=== PATIENT | female | born 1945 | race Caucasian/White ===

== ENCOUNTER 2022-10-21 14:45 | Inpatient (IN) | payer BC, OTHER ==
[~2022-10-21] VITALS: Ht 160 cm; Wt 108.4 kg
[2022-10-21] MEDS ORDERED: IV NORMAL SALINE 1000 ML BAG IV ONE (15:00)
[2022-10-21 15:12] LABS: HEMATOCRIT 28.4 % (31.2-41.9); MEAN CORPUSCULAR HEMOGLOBIN 28.4 uug (24.7-32.8); PLATELET COUNT (AUTO) 160 K/uL (179-408)
[2022-10-21 15:36] LABS: ALANINE AMINOTRANSFERASE 18 U/L (14-59); ALKALINE PHOSPHATASE 80 U/L (50-136); ASPARTATE AMINOTRANSFERASE 20 U/L (15-37); BILIRUBIN,DIRECT 0.1 mg/dL (0.0-0.2); BILIRUBIN,TOTAL 0.1 mg/dL (0.2-1.0); CARBON DIOXIDE 27 mmol/L (21-32); CHLORIDE 106 mmol/L (98-107); CREATININE 1.3 mg/dL (0.6-1.3); GLUCOSE 164 mg/dL (74-106); POTASSIUM 4.3 mmol/L (3.5-5.1); TOTAL PROTEIN, SERUM 6.4 g/dL (6.4-8.2); UREA NITROGEN, BLOOD 32 mg/dL (7-18)
[2022-10-21] MEDS ORDERED: PHYTONADIONE 10 MG/1 ML AMPUL IV ONE (16:30)
[2022-10-21] MEDS ORDERED: PHYTONADIONE 10 MG/1 ML AMPUL ONE (18:00)
--- NOTE | 2022-10-21 19:20 | NUR ---
BROTHER: John Avery -- okay to give him and his Lorie medical information.
[2022-10-21] MEDS ORDERED: MAGNESIUM HYDROXIDE 30 ML LIQUID UDC PO PRN (19:45)
[2022-10-21] MEDS ORDERED: ONDANSETRON 4 MG/2 ML VIAL IV PRN (19:45)
[2022-10-21] MEDS ORDERED: ACETAMINOPHEN 325 MG TABLET PO PRN (19:45)
[2022-10-21] MEDS ORDERED: REMEDY ESSENTIAL ZINC PASTE 113 GM TP PRN (19:45)
[2022-10-21] MEDS ORDERED: ZOLPIDEM 5 MG TABLET PO PRN (19:45)
[2022-10-21] MEDS ORDERED: PANTOPRAZOLE SODIUM 40 MG VIAL ONE (21:10)
--- NOTE | 2022-10-21 21:30 | NUR ---
Admitted patient in Tele floor, alert oriented, but forgetful, no sob no chest pain, sinus rhythm on tele. Patient has bloody diaper, kept clean and dry, no complain of pain, V/s stable, cont to monitor.
[2022-10-21] MEDS: IV NS 1000 ML 1,000 ML IV PRN (22:40)
[2022-10-21] MEDS: PANTOPRAZOLE SODIUM 40 MG VIAL IV SCH (22:40)
[2022-10-21 22:55] VITALS: BP 122/78
[2022-10-22] VITALS (13 sets, daily range): BP systolic 91–128; BP diastolic 44–78
--- NOTE | 2022-10-22 01:35 | NUR ---
Frozen plasma was picked up from blood bank, but when tried to start transfusion, plasma product unable to scan, call blood bank, and instructed me to bring back the plasma.
--- NOTE | 2022-10-22 02:00 | NUR ---
Transfusing fresh frozen plasma as ordered, tolerate well, no adverse reaction noted at this time, cont to monitor.
--- NOTE | 2022-10-22 02:42 | NUR ---
Transfused fresh frozen plasma, tolerate well, no adverse reaction noted at this time, cont to monitor.
--- NOTE | 2022-10-22 06:42 | NUR ---
PATIENT AWAKE HOB ELEVATED, NO SOB NO CHEST PAIN, NO FURTHER BLEEDING NOTED ON THE DIAPER, KEPT CLEAN AND DRY. SINUS RHYTHM ON TELE, KEPT COMFORTABLE.
[2022-10-22 06:53] LABS: HEMATOCRIT 21.8 % (31.2-41.9); MEAN CORPUSCULAR HEMOGLOBIN 29.8 uug (24.7-32.8); MEAN CORPUSCULAR VOLUME 87.7 fL (75.5-95.3); PLATELET COUNT (AUTO) 121 K/uL (179-408)
[2022-10-22 07:07] LABS: CREATININE 1.1 mg/dL (0.6-1.3); MAGNESIUM 1.4 mg/dL (1.8-2.4); PHOSPHOROUS 3.2 mg/dL (2.5-4.9); POTASSIUM 4.1 mmol/L (3.5-5.1)
[2022-10-22] MEDS: PANTOPRAZOLE SODIUM 40 MG VIAL IV SCH ×2 (08:18→21:30)
[2022-10-22] MEDS ORDERED: ACET-2154 PO (11:14)
[2022-10-22] MEDS ORDERED: FERR325T28 PO (11:14)
[2022-10-22] MEDS ORDERED: DOCU100C36 PO (11:14)
[2022-10-22] MEDS ORDERED: HYDR-3972 PO (11:14)
[2022-10-22] MEDS ORDERED: LEVO88TA2 PO (11:14)
[2022-10-22] MEDS ORDERED: AMIO200T5 PO (11:14)
[2022-10-22] MEDS ORDERED: WARF4TAB72 PO (11:14)
[2022-10-22] MEDS ORDERED: PANT40TA2 PO (11:14)
[2022-10-22] MEDS ORDERED: ESCI-9 PO (11:14)
[2022-10-22] MEDS ORDERED: CLOT15CR27 TP (11:14)
[2022-10-22] MEDS ORDERED: ANAS1TAB50 PO (11:14)
[2022-10-22] MEDS: MAGNESIUM SULFATE/D5W 100 ML IV SCH ×4 (11:17→18:45)
[2022-10-22 19:24] LABS: *OCCULT BLOOD STOOL POSITIVE (NEGATIVE)
[2022-10-23] VITALS: BP 96/55
--- NOTE | 2022-10-23 06:00 | NUR ---
--PT CONT.WITH STABLE VS. 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 NO S/S. BP HAS BEEN WNL. PT ALSO HAS O2 2L/NC. RESPS REG/UNLAB. IV I/P VIA R.ARM. PT HAS BEEN INCONT WITH URIINE. AM CARE GIVEN. GEN. COND. HAS BEEN STABLE. RISHI LIN
[2022-10-23 06:27] VITALS: BP 100/52
[2022-10-23 06:27] LABS: HEMATOCRIT 25.7 % (31.2-41.9); MEAN CORPUSCULAR HEMOGLOBIN 30.4 uug (24.7-32.8); MEAN CORPUSCULAR VOLUME 89.2 fL (75.5-95.3); PLATELET COUNT (AUTO) 125 K/uL (179-408)
[2022-10-23 06:33] LABS: CREATININE 1.1 mg/dL (0.6-1.3); MAGNESIUM 2.5 mg/dL (1.8-2.4); POTASSIUM 4.3 mmol/L (3.5-5.1)
[2022-10-23] MEDS: PANTOPRAZOLE SODIUM 40 MG TABLET.DR PO SCH (07:07)
[2022-10-23] MEDS: LEVOTHYROXINE SODIUM 88 MCG TABLET PO SCH (07:07)
--- NOTE | 2022-10-23 07:43 | NUR ---
Received note from lab that blood is ready. nurses notified
[2022-10-23 08:00] VITALS: BP 120/78
[2022-10-23] MEDS ORDERED: CLOTRIMAZOLE 1% CREAM 30 GM TUBE TP SCH (09:00)
[2022-10-23] MEDS ORDERED: AMIODARONE HCL 200 MG TABLET PO SCH (09:00)
[2022-10-23] MEDS: PANTOPRAZOLE SODIUM 40 MG VIAL IV SCH ×2 (09:06→20:45)
[2022-10-23] MEDS: FERROUS SULFATE 325 MG TABEC PO SCH ×2 (09:06→17:28)
[2022-10-23] MEDS: DOCUSATE SODIUM 100 MG CAPSULE PO SCH ×2 (09:06→17:28)
[2022-10-23] MEDS: ESCITALOPRAM OXALATE 10 MG TABLET PO SCH (09:06)
[2022-10-23] MEDS: ANASTROZOLE 1 MG TABLET PO SCH (09:08)
[2022-10-23] MEDS ORDERED: GLUCERNA SHAKE 237 ML CAN PO SCH (12:00)
[2022-10-23 12:01] VITALS: BP 98/50
[2022-10-23] MEDS: PROTEIN SUPPLEMENT (PROSTAT) 30 ML LIQUID PO SCH (12:07)
[2022-10-23] MEDS: CLOTRIMAZOLE 1% CREAM 30 GM TUBE TP SCH (12:07)
[2022-10-23 16:17] VITALS: BP 98/46
[2022-10-23] MEDS ORDERED: WARFARIN SODIUM 4 MG TABLET PO SCH (17:00)
[2022-10-23 20:36] VITALS: BP 90/41
[2022-10-23] MEDS: IV NS 1000 ML 1,000 ML IV PRN (22:34)
[2022-10-24 00:07] VITALS: BP 97/52
[2022-10-24 04:13] VITALS: BP 108/50
[2022-10-24] MEDS: LEVOTHYROXINE SODIUM 88 MCG TABLET PO SCH (06:40)
[2022-10-24] MEDS: PANTOPRAZOLE SODIUM 40 MG TABLET.DR PO SCH (06:40)
[2022-10-24 06:48] LABS: HEMATOCRIT 24.7 % (31.2-41.9); MEAN CORPUSCULAR HEMOGLOBIN 30.5 uug (24.7-32.8); PLATELET COUNT (AUTO) 120 K/uL (179-408)
[2022-10-24 07:07] LABS: CREATININE 1.2 mg/dL (0.6-1.3); MAGNESIUM 1.9 mg/dL (1.8-2.4); PHOSPHOROUS 2.8 mg/dL (2.5-4.9); POTASSIUM 4.3 mmol/L (3.5-5.1)
[2022-10-24] MEDS: PROTEIN SUPPLEMENT (PROSTAT) 30 ML LIQUID PO SCH (08:20)
[2022-10-24] MEDS: ANASTROZOLE 1 MG TABLET PO SCH (08:21)
[2022-10-24] MEDS: ESCITALOPRAM OXALATE 10 MG TABLET PO SCH (08:21)
[2022-10-24] MEDS: DOCUSATE SODIUM 100 MG CAPSULE PO SCH ×2 (08:21→16:45)
[2022-10-24] MEDS: FERROUS SULFATE 325 MG TABEC PO SCH ×2 (08:21→16:45)
[2022-10-24] MEDS: CLOTRIMAZOLE 1% CREAM 30 GM TUBE TP SCH (08:22)
[2022-10-24 12:00] VITALS: BP 105/52
--- NOTE | 2022-10-24 14:20 | NUR ---
WOUND CARE CONSULT: PT PRESENTS WITH ULCER TO LEFT LOWER LEG, PRESENT ON ADMISSION. DPM CONSULT CALLED TO DR ELKINS. RECOMMENDATIONS MADE FOR SKIN PROTECTION. DISCUSSED WITH NURSING STAFF. PT REFUSED TO TURN FOR FULL SKIN ASSESSMENT. MD IN AGREEMENT WITH PLAN OF CARE.
[2022-10-24 15:47] VITALS: BP 135/48
--- NOTE | 2022-10-24 17:16 | NUR ---
Pt. noted to be stable through out the shift. Alert and orated x4. No acute distress noted. Compliance with the care given. Able to make the need known. All need attended and met. Will keep monitoring the resident.
[2022-10-24] MEDS ORDERED: IBUPROFEN 400 MG TABLET PO PRN (18:15)
[2022-10-24] MEDS: IV NS 1000 ML 1,000 ML IV PRN (18:24)
[2022-10-24 19:59] VITALS: BP 139/61
[2022-10-25 00:30] VITALS: BP 128/61
[2022-10-25 04:38] VITALS: BP 115/58
[2022-10-25] MEDS: LEVOTHYROXINE SODIUM 88 MCG TABLET PO SCH (06:11)
[2022-10-25] MEDS: PANTOPRAZOLE SODIUM 40 MG TABLET.DR PO SCH (06:11)
[2022-10-25 07:16] LABS: HEMATOCRIT 26.5 % (31.2-41.9); MEAN CORPUSCULAR HEMOGLOBIN 29.5 uug (24.7-32.8); MEAN CORPUSCULAR VOLUME 90.9 fL (75.5-95.3); PLATELET COUNT (AUTO) 149 K/uL (179-408)
[2022-10-25 07:32] LABS: CARBON DIOXIDE 25 mmol/L (21-32); CHLORIDE 105 mmol/L (98-107); CREATININE 1.2 mg/dL (0.6-1.3); GLUCOSE 100 mg/dL (74-106); MAGNESIUM 1.8 mg/dL (1.8-2.4); PHOSPHOROUS 2.9 mg/dL (2.5-4.9); POTASSIUM 4.1 mmol/L (3.5-5.1); UREA NITROGEN, BLOOD 18 mg/dL (7-18)
--- NOTE | 2022-10-25 08:00 | NUR ---
RECEIVED PATIENT IN BED AWAKE ALERT AND ORIENTED PATIENT IS HYPERVOCAL BUT TENDS TO FORGET AT TIMES LOSSES HER TREND OF THOUGHTS ABLE TO MAKE SIMPLE NEEDS KNOWN TURNED AND REPOSITIONED Q2H FOR COMFORT SHE IS INCONTINENT OF BLADDER WITH DAGMAR CARE NEEDED CALL LIGHT AND PERSONAL BELONGINGS ARE WITHIN EASY REACH AT THIS TIME WILL CONTINUE TO OBSERVE.
[2022-10-25] MEDS: PROTEIN SUPPLEMENT (PROSTAT) 30 ML LIQUID PO SCH (08:22)
[2022-10-25] MEDS: FERROUS SULFATE 325 MG TABEC PO SCH ×2 (08:34→16:46)
[2022-10-25] MEDS: ESCITALOPRAM OXALATE 10 MG TABLET PO SCH (08:34)
[2022-10-25] MEDS: DOCUSATE SODIUM 100 MG CAPSULE PO SCH ×2 (08:34→16:46)
[2022-10-25] MEDS: ANASTROZOLE 1 MG TABLET PO SCH (08:46)
[2022-10-25] MEDS: CLOTRIMAZOLE 1% CREAM 30 GM TUBE TP SCH (09:26)
[2022-10-25 11:55] VITALS: BP 125/60
--- NOTE | 2022-10-25 14:45 | NUR ---
IV SITE INFILTERATED ATTEMPTED MANY TIMES BUT UNABLE TO REINSERT MD NOTIFIED WITH ORDER TO INSERT A MIDLINE AND NOTED.
--- NOTE | 2022-10-25 14:46 | NUR ---
IV SITE INFILTERATED MULTIPLE ATTEMPTS TO REINSERT FAILED MD NOTIFIED WITH ORDER TO INSERT A MIDLINE MID LINE RN AWARE.
[2022-10-25] MEDS ORDERED: GOLYTELY 4000 ML BOTTLE PO ONE (15:30)
[2022-10-25 15:59] VITALS: BP 101/45
--- NOTE | 2022-10-25 16:46 | NUR ---
GOLYTELY STARTED ORDERED PATIENT IS COMPLAINING C/O DOES NOT TASTE GOOD ENCOURAGED TO DRINK ITS NECESSARY FOR HER DUE TO COLONOSCOPY PLANED
--- NOTE | 2022-10-25 17:20 | NUR ---
DR PAUL HERE AND SEEN PATIENT WITH NEW ORDERS AND NOTED.
--- NOTE | 2022-10-25 18:00 | NUR ---
CONSCENT OBTAINED FOR SERIAL DEBRIDEMENT OF LEFT LOWER LEG.
[2022-10-25] MEDS: IV NS 1000 ML 1,000 ML IV PRN (18:29)
--- NOTE | 2022-10-25 18:30 | NUR ---
SO FAR ONLY 3 CUPS OF 180 EACH HAS BEEN DRUNK BY PATIENT ENDORSED TO NOTIFY THE DOCTOR IF PATIENT IS REFUSING TO CONTINUE TO DRINK.
[2022-10-25 20:00] VITALS: BP 127/59
[2022-10-26] VITALS: BP 121/59
[2022-10-26 04:00] VITALS: BP 107/65
--- NOTE | 2022-10-26 04:26 | NUR ---
AAOx4 All needs attended. Patient to have possible colonoscopy today. Fall precautions maintained. VSS Kept comfortable. Will monitor patient. Tolerated Golytely well. Incontinent of bowel and bladder.
[2022-10-26] MEDS: LEVOTHYROXINE SODIUM 88 MCG TABLET PO SCH (06:09)
[2022-10-26] MEDS: PANTOPRAZOLE SODIUM 40 MG TABLET.DR PO SCH (06:09)
[2022-10-26 07:41] LABS: HEMATOCRIT 27.9 % (31.2-41.9); MEAN CORPUSCULAR HEMOGLOBIN 29.7 uug (24.7-32.8); MEAN CORPUSCULAR VOLUME 90.5 fL (75.5-95.3); PLATELET COUNT (AUTO) 161 K/uL (179-408)
[2022-10-26] MEDS: PROTEIN SUPPLEMENT (PROSTAT) 30 ML LIQUID PO SCH (08:00)
[2022-10-26 08:10] LABS: THYROID STIMULATING HORMONE 7.119 mIU/mL (0.358-3.740)
[2022-10-26 08:32] LABS: MAGNESIUM 1.7 mg/dL (1.8-2.4); PHOSPHOROUS 2.8 mg/dL (2.5-4.9); POTASSIUM 3.6 mmol/L (3.5-5.1)
[2022-10-26] MEDS: FERROUS SULFATE 325 MG TABEC PO SCH (09:00)
[2022-10-26] MEDS: DOCUSATE SODIUM 100 MG CAPSULE PO SCH ×2 (09:00→17:00)
[2022-10-26] MEDS: ESCITALOPRAM OXALATE 10 MG TABLET PO SCH (09:00)
[2022-10-26] MEDS: CLOTRIMAZOLE 1% CREAM 30 GM TUBE TP SCH (09:00)
[2022-10-26] MEDS: ANASTROZOLE 1 MG TABLET PO SCH (09:00)
[2022-10-26] MEDS: MAGNESIUM SULFATE/D5W 100 ML IV SCH ×2 (10:00→11:00)
[2022-10-26 11:10] LABS: BILIRUBIN,DIRECT 0.1 mg/dL (0.0-0.2); BILIRUBIN,TOTAL 0.4 mg/dL (0.2-1.0); TOTAL PROTEIN, SERUM 6.6 g/dL (6.4-8.2)
[2022-10-26 11:45] VITALS: BP 117/57
[2022-10-26] MEDS ORDERED: PHYTONADIONE 10 MG/1 ML AMPUL SQ ONE (13:15)
[2022-10-26] MEDS ORDERED: SOD FERRIC GLUC COMPLX/SUCROSE 125 MG in IV NORMAL SALINE 100 ML IV SCH (14:00)
[2022-10-26 15:42] VITALS: BP 120/51
[2022-10-26 16:23] LABS: *RHEUMATOID FACTOR SCREEN NEGATIVE (NEGATIVE)
--- NOTE | 2022-10-26 18:09 | NUR ---
pt has been NPO since midnight Colonoscopy was scheduled for 6pm Procedure cancelled until 10/27 - time to be determined pt given dinner tray clear liquid - per diet order pt notified of cancelled procedure
[2022-10-26 20:00] VITALS: BP 99/53
[2022-10-27] VITALS (7 sets, daily range): BP systolic 107–120; BP diastolic 47–61
[2022-10-27] MEDS: IV NS 1000 ML 1,000 ML IV PRN (05:36)
[2022-10-27] MEDS: PANTOPRAZOLE SODIUM 40 MG TABLET.DR PO SCH (06:42)
[2022-10-27] MEDS: LEVOTHYROXINE SODIUM 88 MCG TABLET PO SCH (06:42)
[2022-10-27 06:44] LABS: HEMATOCRIT 24.6 % (31.2-41.9); MEAN CORPUSCULAR HEMOGLOBIN 29.8 uug (24.7-32.8); MEAN CORPUSCULAR VOLUME 89.9 fL (75.5-95.3); PLATELET COUNT (AUTO) 154 K/uL (179-408)
[2022-10-27 06:54] LABS: CARBON DIOXIDE 26 mmol/L (21-32); CHLORIDE 106 mmol/L (98-107); CREATININE 1.1 mg/dL (0.6-1.3); GLUCOSE 105 mg/dL (74-106); MAGNESIUM 1.8 mg/dL (1.8-2.4); PHOSPHOROUS 3.5 mg/dL (2.5-4.9); POTASSIUM 3.7 mmol/L (3.5-5.1); UREA NITROGEN, BLOOD 10 mg/dL (7-18)
--- NOTE | 2022-10-27 07:30 | NUR ---
REPORT GIVEN TO RILEY DICKSON
[2022-10-27] MEDS: PROTEIN SUPPLEMENT (PROSTAT) 30 ML LIQUID PO SCH (08:00)
[2022-10-27 08:06] LABS: *IMMUNOGLOBULIN G, SERUM 1103 mg/dL (586-1602); IMMUNOGLOBULIN M, SERUM 102 mg/dL (26-217)
[2022-10-27] MEDS: CLOTRIMAZOLE 1% CREAM 30 GM TUBE TP SCH (09:02)
[2022-10-27] MEDS: ESCITALOPRAM OXALATE 10 MG TABLET PO SCH (09:02)
[2022-10-27] MEDS: ANASTROZOLE 1 MG TABLET PO SCH (09:02)
[2022-10-27] MEDS: DOCUSATE SODIUM 100 MG CAPSULE PO SCH ×2 (09:02→16:06)
[2022-10-27 10:06] LABS: HEPATITIS B SURFACE AG Negative (Negative)
[2022-10-27 11:07] LABS: *ANTI-SCLERODERMA-70 AB <0.2 AI (0.0-0.9); *SJOGREN'S ANTI-SS-A <0.2 AI (0.0-0.9); *SJOGREN'S ANTI-SS-B 0.6 AI (0.0-0.9); *SMITH ANTIBODIES <0.2 AI (0.0-0.9); ANTI-DNA(DS) AB, QN <1 IU/mL (0-9)
[2022-10-27 12:07] LABS: A/G RATIO 0.7 (0.7-1.7); ALBUMIN 2.5 g/dL (2.9-4.4); ALPHA-1-GLOBULIN 0.4 g/dL (0.0-0.4); ALPHA-2-GLOBULIN 0.8 g/dL (0.4-1.0); BETA GLOBULIN 0.9 g/dL (0.7-1.3); GAMMA GLOBULIN 1.2 g/dL (0.4-1.8); GLOBULIN, TOTAL 3.4 g/dL (2.2-3.9); M-SPIKE Not Observed g/dL (Not Observed)
[2022-10-27] MEDS ORDERED: ACETAMINOPHEN 325 MG TABLET PO ONE (13:00)
[2022-10-27] MEDS ORDERED: diphenhydrAMINE 50 MG/1 ML VIAL IV ONE (13:00)
[2022-10-27] MEDS ORDERED: PHYTONADIONE 10 MG/1 ML AMPUL SQ ONE (13:00)
[2022-10-27] MEDS ORDERED: PIPERACILLIN SODIUM/TAZOBACTAM 3.375 G in IV DEXTROSE 5% 100 ML IV SCH (14:00)
[2022-10-27] MEDS ORDERED: PIPERACILLIN SODIUM/TAZOBACTAM 3.375 G in IV DEXTROSE 5% 50 ML IV SCH (14:00)
[2022-10-27 15:21] LABS: BILIRUBIN,DIRECT 0.1 mg/dL (0.0-0.2); BILIRUBIN,TOTAL 0.4 mg/dL (0.2-1.0)
[2022-10-27] MEDS: SOD FERRIC GLUC COMPLX/SUCROSE 125 MG in IV NORMAL SALINE 100 ML IV SCH (16:22)
[2022-10-27] MEDS: PIPERACILLIN SODIUM/TAZOBACTAM 3.375 G in IV DEXTROSE 5% 100 ML IV SCH (17:03)
[2022-10-27] MEDS ORDERED: FENTANYL CITRATE 100 MCG/2 ML AMPUL ONE (17:30)
--- NOTE | 2022-10-27 17:35 | NUR ---
patient taken to the O.R at this time.
[2022-10-27] MEDS ORDERED: PROPOFOL 200 MG/20 ML BOTTLE ONE (18:36)
[2022-10-27] MEDS ORDERED: LIDOCAINE-MPF 2% 5 ML VIAL ONE (18:36)
[2022-10-28] VITALS: BP 126/57
[2022-10-28 02:06] LABS: CANCER AG, 125 45.6 U/mL (0.0-38.1); CANCER ANTIGEN 15-3 13.1 U/mL (0.0-25.0)
[2022-10-28] MEDS: PIPERACILLIN SODIUM/TAZOBACTAM 3.375 G in IV DEXTROSE 5% 100 ML IV SCH ×3 (02:56→17:46)
[2022-10-28 04:00] VITALS: BP 125/65
[2022-10-28] MEDS: PANTOPRAZOLE SODIUM 40 MG TABLET.DR PO SCH (06:01)
[2022-10-28] MEDS: LEVOTHYROXINE SODIUM 88 MCG TABLET PO SCH (06:01)
[2022-10-28 06:41] LABS: HEMATOCRIT 22.8 % (31.2-41.9); MEAN CORPUSCULAR HEMOGLOBIN 29.4 uug (24.7-32.8); MEAN CORPUSCULAR VOLUME 89.6 fL (75.5-95.3); PLATELET COUNT (AUTO) 181 K/uL (179-408)
[2022-10-28 06:49] LABS: BILIRUBIN,DIRECT 0.2 mg/dL (0.0-0.2); BILIRUBIN,TOTAL 0.3 mg/dL (0.2-1.0); CREATININE 1.1 mg/dL (0.6-1.3); MAGNESIUM 1.7 mg/dL (1.8-2.4); PHOSPHOROUS 4.1 mg/dL (2.5-4.9); POTASSIUM 3.7 mmol/L (3.5-5.1)
[2022-10-28 08:00] VITALS: BP 125/65
[2022-10-28] MEDS: PROTEIN SUPPLEMENT (PROSTAT) 30 ML LIQUID PO SCH (09:41)
[2022-10-28] MEDS: DOCUSATE SODIUM 100 MG CAPSULE PO SCH ×2 (09:43→17:29)
[2022-10-28] MEDS: ESCITALOPRAM OXALATE 10 MG TABLET PO SCH (09:43)
[2022-10-28] MEDS: ANASTROZOLE 1 MG TABLET PO SCH (09:43)
[2022-10-28] MEDS: CLOTRIMAZOLE 1% CREAM 30 GM TUBE TP SCH (09:44)
[2022-10-28] MEDS ORDERED: MAGNESIUM OXIDE 400 MG TABLET PO ONE (11:00)
[2022-10-28 12:48] VITALS: BP 121/62
[2022-10-28] MEDS: SOD FERRIC GLUC COMPLX/SUCROSE 125 MG in IV NORMAL SALINE 100 ML IV SCH (14:25)
[2022-10-28 16:09] VITALS: BP 119/56
[2022-10-28 20:41] VITALS: BP 126/57
[2022-10-29 00:34] VITALS: BP 107/60
[2022-10-29] MEDS: PIPERACILLIN SODIUM/TAZOBACTAM 3.375 G in IV DEXTROSE 5% 100 ML IV SCH ×3 (02:20→17:16)
[2022-10-29 04:00] VITALS: BP 107/60
[2022-10-29] MEDS: LEVOTHYROXINE SODIUM 88 MCG TABLET PO SCH (05:58)
[2022-10-29] MEDS: PANTOPRAZOLE SODIUM 40 MG TABLET.DR PO SCH (05:58)
[2022-10-29 07:36] LABS: HEMATOCRIT 25.7 % (31.2-41.9); MEAN CORPUSCULAR HEMOGLOBIN 28.7 uug (24.7-32.8); MEAN CORPUSCULAR VOLUME 90.6 fL (75.5-95.3); PLATELET COUNT (AUTO) 201 K/uL (179-408)
[2022-10-29 07:53] LABS: CREATININE 1.1 mg/dL (0.6-1.3); MAGNESIUM 1.7 mg/dL (1.8-2.4); PHOSPHOROUS 3.9 mg/dL (2.5-4.9)
[2022-10-29] MEDS: PROTEIN SUPPLEMENT (PROSTAT) 30 ML LIQUID PO SCH (09:10)
[2022-10-29] MEDS: ANASTROZOLE 1 MG TABLET PO SCH (09:10)
[2022-10-29] MEDS: ESCITALOPRAM OXALATE 10 MG TABLET PO SCH (09:11)
[2022-10-29] MEDS: DOCUSATE SODIUM 100 MG CAPSULE PO SCH ×2 (09:11→17:00)
[2022-10-29 10:17] VITALS: BP 107/60
[2022-10-29] MEDS: CLOTRIMAZOLE 1% CREAM 30 GM TUBE TP SCH (11:50)
[2022-10-29] MEDS: POTASSIUM CHLORIDE 20 MEQ TAB.PRT.SR PO SCH ×2 (11:53→12:46)
[2022-10-29] MEDS: MAGNESIUM SULFATE/D5W 100 ML IV SCH ×2 (11:53→12:46)
[2022-10-29 12:00] VITALS: BP 110/63
[2022-10-29] MEDS: SOD FERRIC GLUC COMPLX/SUCROSE 125 MG in IV NORMAL SALINE 100 ML IV SCH (15:14)
[2022-10-29 16:00] VITALS: BP 115/69
[2022-10-29 20:00] VITALS: BP 118/69
[2022-10-30] VITALS: BP_SYST 115; BP_SYST 120; BP_SYST 129; BP_DIAS 64; BP_DIAS 70
[2022-10-30] MEDS: PIPERACILLIN SODIUM/TAZOBACTAM 3.375 G in IV DEXTROSE 5% 100 ML IV SCH ×3 (01:09→17:09)
[2022-10-30 04:00] VITALS: BP 110/68
[2022-10-30] MEDS: LEVOTHYROXINE SODIUM 88 MCG TABLET PO SCH (06:06)
[2022-10-30] MEDS: PANTOPRAZOLE SODIUM 40 MG TABLET.DR PO SCH (06:06)
[2022-10-30 07:52] LABS: HEMATOCRIT 26.3 % (31.2-41.9); MEAN CORPUSCULAR HEMOGLOBIN 28.8 uug (24.7-32.8); MEAN CORPUSCULAR VOLUME 90.8 fL (75.5-95.3); PLATELET COUNT (AUTO) 203 K/uL (179-408)
[2022-10-30 08:14] LABS: CREATININE 1.1 mg/dL (0.6-1.3); MAGNESIUM 1.9 mg/dL (1.8-2.4); PHOSPHOROUS 3.5 mg/dL (2.5-4.9); POTASSIUM 4.1 mmol/L (3.5-5.1)
[2022-10-30] MEDS: ESCITALOPRAM OXALATE 10 MG TABLET PO SCH (08:44)
[2022-10-30] MEDS: DOCUSATE SODIUM 100 MG CAPSULE PO SCH ×2 (08:44→16:57)
[2022-10-30] MEDS: ANASTROZOLE 1 MG TABLET PO SCH (08:45)
[2022-10-30] MEDS: PROTEIN SUPPLEMENT (PROSTAT) 30 ML LIQUID PO SCH (08:45)
[2022-10-30] MEDS: CLOTRIMAZOLE 1% CREAM 30 GM TUBE TP SCH (08:46)
[2022-10-30 11:39] VITALS: BP 132/55
[2022-10-30 13:49] LABS: *BILIRUBIN,URIN NEGATIVE (NEGATIVE); *CLARITY,URINE CLEAR (CLEAR); *COLOR,URINE YELLOW (YELLOW); *KETONES,URINE NEGATIVE (NEGATIVE); *UROBILINOGEN,URINE 0.2 E.U./dl (NORMAL); LEUKOCYTE ESTERASE ,URINE 1+ (NEGATIVE); NITRITE, URINE NEGATIVE (NEGATIVE); PH,URINE 5.5 (5.0-8.0); UGLUCOSE NEGATIVE (NEGATIVE)
[2022-10-30 14:12] LABS: *BLOOD, URINE TRACE (NEGATIVE)
[2022-10-30 15:39] LABS: RBC,URINE 0-3 /HPF (0-3)
[2022-10-30 15:41] LABS: BACTERIA,URINE NONE SEEN /HPF (NONE SEEN); SQUAMOUS EPITHELIAL CELL,UR FEW /HPF (NONE SEEN)
[2022-10-30] MEDS: SOD FERRIC GLUC COMPLX/SUCROSE 125 MG in IV NORMAL SALINE 100 ML IV SCH (15:58)
[2022-10-30 16:20] VITALS: BP 139/53
[2022-10-30 20:21] VITALS: BP 132/48
[2022-10-31 00:02] VITALS: BP 128/48
[2022-10-31] MEDS: HYDROCODONE/APAP 5-325MG TABLET PO PRN ×3 (00:40→04:47)
[2022-10-31] MEDS: PIPERACILLIN SODIUM/TAZOBACTAM 3.375 G in IV DEXTROSE 5% 100 ML IV SCH ×2 (02:00→10:05)
[2022-10-31 04:22] VITALS: BP 126/54
[2022-10-31] MEDS: LEVOTHYROXINE SODIUM 88 MCG TABLET PO SCH (05:58)
[2022-10-31] MEDS: PANTOPRAZOLE SODIUM 40 MG TABLET.DR PO SCH (05:58)
[2022-10-31 07:52] LABS: HEMATOCRIT 25.8 % (31.2-41.9); MEAN CORPUSCULAR HEMOGLOBIN 29.4 uug (24.7-32.8); MEAN CORPUSCULAR VOLUME 90.3 fL (75.5-95.3); PLATELET COUNT (AUTO) 218 K/uL (179-408)
[2022-10-31 08:00] VITALS: BP 128/62
[2022-10-31 08:03] LABS: CREATININE 1.1 mg/dL (0.6-1.3); POTASSIUM 3.9 mmol/L (3.5-5.1)
[2022-10-31] MEDS: DOCUSATE SODIUM 100 MG CAPSULE PO SCH (08:31)
[2022-10-31] MEDS: ESCITALOPRAM OXALATE 10 MG TABLET PO SCH (08:32)
[2022-10-31] MEDS: ANASTROZOLE 1 MG TABLET PO SCH (08:33)
[2022-10-31] MEDS: PROTEIN SUPPLEMENT (PROSTAT) 30 ML LIQUID PO SCH (08:33)
[2022-10-31] MEDS: CLOTRIMAZOLE 1% CREAM 30 GM TUBE TP SCH (08:34)
[2022-10-31 12:00] VITALS: BP 119/53
--- NOTE | 2022-10-31 13:30 | NUR ---
[facility] Pt. noted to be stable upon the discharge. Noted to be at her baseline mentation. No C/O pain. IV line removed per Dr. Heard order. Pictures were taken at discharge and included in pt. chart. Personal belonging returned to the patient. Was picked up by the ambulance. Several times, [facility] call [facility] and No one picked up the phone.
== END 2022-10-31 13:30 | DRG 357 ==
LOC: ER 14:45 → TELE3 18:46 → MEDSURG3 10-31 11:20
PROVIDERS: ADMIT Nurse Practitioner Acute Care; ATTEND Nurse Practitioner Family
PROC: 30233N1 Transfusion of Nonautologous Red Blood Cells into Peripheral Vein, Percutaneous Approach (ICD-10-PCS; 2022-10-22)
PROC: 30233K1 Transfusion of Nonautologous Frozen Plasma into Peripheral Vein, Percutaneous Approach (ICD-10-PCS; 2022-10-22)
PROC: 05H633Z Insertion of Infusion Device into Left Subclavian Vein, Percutaneous Approach (ICD-10-PCS; 2022-10-25)
PROC: B547ZZA Ultrasonography of Left Subclavian Vein, Guidance (ICD-10-PCS; 2022-10-25)
PROC: 0DJD8ZZ Inspection of Lower Intestinal Tract, Via Natural or Artificial Opening Endoscopic (ICD-10-PCS; principal; 2022-10-27)
PROC: 0JBP0ZZ Excision of Left Lower Leg Subcutaneous Tissue and Fascia, Open Approach (ICD-10-PCS; 2022-10-28)
DX: K57.31 Diverticulosis of large intestine without perforation or abscess with bleeding (principal); D61.818 Other pancytopenia; E44.0 Moderate protein-calorie malnutrition; Z68.41 Body mass index [BMI] 40.0-44.9, adult; D68.69 Other thrombophilia; D68.9 Coagulation defect, unspecified; L97.929 Non-pressure chronic ulcer of unspecified part of left lower leg with unspecified severity; T45.515A Adverse effect of anticoagulants, initial encounter; Z66 Do not resuscitate; Y92.89 Other specified places as the place of occurrence of the external cause; I48.0 Paroxysmal atrial fibrillation; E66.01 Morbid (severe) obesity due to excess calories; E03.9 Hypothyroidism, unspecified; E11.9 Type 2 diabetes mellitus without complications; E88.09 Other disorders of plasma-protein metabolism, not elsewhere classified; F32.A Depression, unspecified; K21.9 Gastro-esophageal reflux disease without esophagitis; Z79.811 Long term (current) use of aromatase inhibitors; Z85.42 Personal history of malignant neoplasm of other parts of uterus; Z90.13 Acquired absence of bilateral breasts and nipples; Z85.3 Personal history of malignant neoplasm of breast; Z79.01 Long term (current) use of anticoagulants; R00.1 Bradycardia, unspecified; I87.2 Venous insufficiency (chronic) (peripheral); D50.9 Iron deficiency anemia, unspecified; K80.20 Calculus of gallbladder without cholecystitis without obstruction; I10 Essential (primary) hypertension; T46.2X5A Adverse effect of other antidysrhythmic drugs, initial encounter; R94.31 Abnormal electrocardiogram [ECG] [EKG]; D50.0 Iron deficiency anemia secondary to blood loss (chronic)
CPT/HCPCS: 36415; 71045; 76700; 78445; 82378; 82746; 82747; 82784; 83550; 83605; 83690; 83735; 84100; 84155; 84165; 84443; 84484; 85014; 85025; 85610; 85730; 86038; 86140; 86300; 86334; 86430; 86706; 86803; 86850; 86900; 86901; 86920; 87040; 87340; 87400; 93005; 97535-GO-CO; A4663; A6209; A9537; C9113; G0378; J1200; J2543; J2916; J3010; J3430; J3475; J7040; J7050; P9016; P9059

== ENCOUNTER 2025-06-24 16:46 | Inpatient (IN) | payer MEDICARE, OTHER ==
[~2025-06-24] VITALS: Ht 160 cm; Wt 92.1 kg
[~2025-06-24 16:46] MED LIST: ACET-2154 PO; ANAS1TAB50 PO; CLOT15CR27 TP; DOCU100C36 PO; ESCI-9 PO; FERR325T28 PO; HYDR-3972 PO; LEVO88TA2 PO; PANT40TA2 PO
[2025-06-24 17:17] LABS: PLATELET COUNT (AUTO) 167 K/uL (179-408); RED BLOOD CELL COUNT(AUTO) 4.45 MIL/uL (3.63-4.92); RED CELL DISTRIBUTION WIDTH 16.4 % (12.3-17.7); WHITE BLOOD COUNT (AUTO) 7.4 K/uL (3.8-11.8)
[2025-06-24 17:30] LABS: ASPARTATE AMINOTRANSFERASE 10 U/L (15-37); CREATININE 1.1 mg/dL (0.6-1.3); SODIUM SERUM 143 mmol/L (136-145); TOTAL PROTEIN, SERUM 7.1 g/dL (6.4-8.2); UREA NITROGEN, BLOOD 28 mg/dL (7-18)
[2025-06-24] MEDS: IV NORMAL SALINE 500 ML BAG IV ONE (17:58)
[2025-06-24] MEDS ORDERED: ESCI5TAB PO (18:19)
[2025-06-24] MEDS ORDERED: CHOL10005 PO (18:21)
[2025-06-24] MEDS ORDERED: MAGNESIUM HYDROXIDE 30 ML LIQUID UDC PO PRN (18:45)
[2025-06-24] MEDS ORDERED: ONDANSETRON 4 MG/2 ML VIAL IV PRN (18:45)
[2025-06-24] MEDS ORDERED: REMEDY ESSENTIAL ZINC PASTE 113 GM TP PRN (18:45)
[2025-06-24] MEDS ORDERED: ENOXAPARIN SODIUM 40 MG/0.4 ML DISP.SYRIN SQ ONE (19:26)
[2025-06-24] MEDS: ENOXAPARIN SODIUM 40 MG/0.4 ML DISP.SYRIN SQ SCH (19:27)
[2025-06-24 20:00] VITALS: BP 112/61; TEMP 97.9; O2SAT 96
[2025-06-24 20:20] VITALS: BP 105/78
[2025-06-24] MEDS: IV D5 1/2 NS 1000 ML 1,000 ML IV PRN (22:46)
[2025-06-25 04:42] LABS: *BILIRUBIN,URIN NEGATIVE (NEGATIVE); *CLARITY,URINE CLEAR (CLEAR); *COLOR,URINE YELLOW (YELLOW); *KETONES,URINE NEGATIVE (NEGATIVE); *PROTEIN,URINE TRACE (NEGATIVE); *UROBILINOGEN,URINE 0.2 E.U./dl (NORMAL); LEUKOCYTE ESTERASE ,URINE 2+ (NEGATIVE); NITRITE, URINE POSITIVE (NEGATIVE); UGLUCOSE NEGATIVE (NEGATIVE)
[2025-06-25 04:44] LABS: *BLOOD, URINE TRACE (NEGATIVE); SQUAMOUS EPITHELIAL CELL,UR FEW /HPF (NONE SEEN)
[2025-06-25 05:00] VITALS: BP 105/64; TEMP 98; O2SAT 97
[2025-06-25] MEDS: PANTOPRAZOLE SODIUM 40 MG TABLET.DR PO SCH (06:12)
[2025-06-25 07:24] LABS: PLATELET COUNT (AUTO) 149 K/uL (179-408); RED BLOOD CELL COUNT(AUTO) 4.14 MIL/uL (3.63-4.92); RED CELL DISTRIBUTION WIDTH 16.0 % (12.3-17.7); WHITE BLOOD COUNT (AUTO) 5.5 K/uL (3.8-11.8)
[2025-06-25 07:44] LABS: CREATININE 1.0 mg/dL (0.6-1.3); SODIUM SERUM 141 mmol/L (136-145); UREA NITROGEN, BLOOD 23 mg/dL (7-18)
[2025-06-25] MEDS: MAGNESIUM OXIDE 400 MG TABLET PO ONE (10:13)
[2025-06-25] MEDS ORDERED: DIVA125C5 PO (10:31)
[2025-06-25] MEDS ORDERED: MULT-1045 PO (10:33)
[2025-06-25] MEDS: CEFTRIAXONE 1 G in IV DEXTROSE 5% 50 ML IV SCH (11:17)
[2025-06-25 11:44] VITALS: BP 115/64; TEMP 98.1; O2SAT 95
[2025-06-25 15:55] VITALS: BP 130/61; TEMP 98.5; O2SAT 97
[2025-06-25 19:00] VITALS: BP 112/76; TEMP 98.1; O2SAT 95
[2025-06-25] MEDS: ACETAMINOPHEN 325 MG TABLET PO PRN (21:05)
[2025-06-26 06:32] VITALS: BP 122/75; TEMP 97.8; O2SAT 97
[2025-06-26 07:11] LABS: PLATELET COUNT (AUTO) 141 K/uL (179-408); RED BLOOD CELL COUNT(AUTO) 4.29 MIL/uL (3.63-4.92); RED CELL DISTRIBUTION WIDTH 15.8 % (12.3-17.7); WHITE BLOOD COUNT (AUTO) 4.6 K/uL (3.8-11.8)
[2025-06-26 08:04] LABS: CREATININE 1.0 mg/dL (0.6-1.3); SODIUM SERUM 139 mmol/L (136-145); UREA NITROGEN, BLOOD 19 mg/dL (7-18)
[2025-06-26 10:58] VITALS: BP 131/64; TEMP 98.2; O2SAT 98
[2025-06-26 15:42] VITALS: BP 124/60; TEMP 98.2; O2SAT 97
[2025-06-26] MEDS: DIVALPROEX SPRINKLE 125 MG CAP.SPRINK PO SCH (16:21)
[2025-06-26] MEDS: DOCUSATE SODIUM 100 MG CAPSULE PO SCH (16:21)
[2025-06-26 19:18] VITALS: BP 108/63; TEMP 98; O2SAT 95
[2025-06-27 05:44] VITALS: BP 112/57; TEMP 97.6; O2SAT 96
[2025-06-27] MEDS: LEVOTHYROXINE SODIUM 88 MCG TABLET PO SCH (06:20)
[2025-06-27 07:54] LABS: PLATELET COUNT (AUTO) 155 K/uL (179-408); RED BLOOD CELL COUNT(AUTO) 4.41 MIL/uL (3.63-4.92); RED CELL DISTRIBUTION WIDTH 16.0 % (12.3-17.7); WHITE BLOOD COUNT (AUTO) 5.2 K/uL (3.8-11.8)
[2025-06-27 08:12] LABS: CREATININE 1.0 mg/dL (0.6-1.3); SODIUM SERUM 140 mmol/L (136-145); UREA NITROGEN, BLOOD 18 mg/dL (7-18)
[2025-06-27 08:20] VITALS: BP 126/66; TEMP 98.5; O2SAT 96
[2025-06-27] MEDS: CHOLECALCIFEROL 1,000 UNIT TABLET PO SCH (08:44)
[2025-06-27] MEDS: MULTIVITAMINS,THERAPEUTIC TABLET PO SCH (08:44)
[2025-06-27] MEDS: FERROUS SULFATE 325 MG TABEC PO SCH (08:45)
[2025-06-27] MEDS: ESCITALOPRAM OXALATE 10 MG TABLET PO SCH (08:45)
[2025-06-27] MEDS: ANASTROZOLE 1 MG TABLET PO SCH (08:48)
[2025-06-27] MEDS ORDERED: PANTOPRAZOLE SODIUM 40 MG TABLET.DR PO SCH (09:00)
[2025-06-27 10:51] VITALS: BP 116/70; TEMP 97.6; O2SAT 95
[2025-06-27 15:32] VITALS: BP 109/60; TEMP 97.5; O2SAT 96
[2025-06-27] MEDS: ENSURE WITH FIBER 237 ML LIQUID (CHOCOLATE) PO SCH (17:09)
[2025-06-29 14:07] LABS: METHYLMALONIC ACID 230.0 nmol/L (0-378)
== END 2025-06-27 19:41 | DRG 641 ==
LOC: ER 17:15 → MEDSURG3 20:08
PROVIDERS: ADMIT Student in an Organized Health Care Education/Training Program; ATTEND Student in an Organized Health Care Education/Training Program
DX: E86.0 Dehydration (principal); E44.0 Moderate protein-calorie malnutrition; N39.0 Urinary tract infection, site not specified; L97.822 Non-pressure chronic ulcer of other part of left lower leg with fat layer exposed; D68.59 Other primary thrombophilia; R62.7 Adult failure to thrive; E66.01 Morbid (severe) obesity due to excess calories; Z66 Do not resuscitate; B96.4 Proteus (mirabilis) (morganii) as the cause of diseases classified elsewhere; K57.30 Diverticulosis of large intestine without perforation or abscess without bleeding; E03.9 Hypothyroidism, unspecified; E11.622 Type 2 diabetes mellitus with other skin ulcer; E88.09 Other disorders of plasma-protein metabolism, not elsewhere classified; E11.65 Type 2 diabetes mellitus with hyperglycemia; E83.42 Hypomagnesemia; E87.70 Fluid overload, unspecified; F32.A Depression, unspecified; K80.20 Calculus of gallbladder without cholecystitis without obstruction; K21.9 Gastro-esophageal reflux disease without esophagitis; Z86.69 Personal history of other diseases of the nervous system and sense organs; Z68.36 Body mass index [BMI] 36.0-36.9, adult; Z85.3 Personal history of malignant neoplasm of breast; Z79.890 Hormone replacement therapy; Z79.899 Other long term (current) drug therapy; Z79.811 Long term (current) use of aromatase inhibitors
CPT/HCPCS: 36415; 70450; 71045; 83735; 83921; 84100; 84443; 84484; 85025; 87077; 87086; 93307; A4606; A4663; G0378; J0696; J1650; J7040